=== PATIENT | male | born 1975 | race Native Hawaiian/Other Pacific Islander ===

== ENCOUNTER 2020-06-16 10:40 | Outpatient (CLI) | payer OTHER | END 2020-06-16 19:13 | disposition home or self-care (01) | LOC: LABW 10:40 | PROVIDERS: ATTEND Family Medicine | DX: D45 Polycythemia vera (principal) | CPT/HCPCS: 36415; 85014; 85018; 99195 ==

== ENCOUNTER 2020-10-30 13:30 | Emergency (ER) | payer OTHER ==
[~2020-10-30] VITALS: Ht 180.3 cm; Wt 81.6 kg
[2020-10-30 13:53] VITALS: TEMP 98.6
[2020-10-30 14:22] LABS: PLATELET COUNT 103 K/uL (142-355)
[2020-10-30 14:31] LABS: POTASSIUM 3.1 mmol/L (3.6-5.2); SODIUM 135 mmol/L (136-145)
[2020-10-30 14:37] LABS: PARTIAL THROMBOPLASTIN TIME 24.7 SECONDS (24.5-33.6)
[2020-10-30 17:44] VITALS: BP 122/82
== END 2020-10-30 17:57 | disposition home or self-care (01) ==
LOC: ED 13:30
PROVIDERS: Family Medicine
DX: R41.82 Altered mental status, unspecified (principal); E87.6 Hypokalemia; E83.42 Hypomagnesemia
CPT/HCPCS: 36415; 80053; 80307; 80320; 81000; 82150; 83690; 83735; 84484; 85027; 85610; 85730; 93005; 96360; 96361; 96374; 96375; 96376; 99284; J2060